=== PATIENT | female | born 1990 | race Caucasian/White ===

== ENCOUNTER 2021-03-27 15:51 | Inpatient (IN) ==
[2021-03-27] MEDS ORDERED: Buffered Lidocaine 1% SYRIN 1 ml INTRADERM ONE (16:50)
[2021-03-27] MEDS ORDERED: Lactated Ringers 1000 ml BAG 1,000 ML IV ONE (16:50)
[2021-03-27] MEDS ORDERED: Lactated Ringers 1000 ml BAG 1,000 ML IV SCH (17:00)
[2021-03-27 18:03] LABS: Urine Benzodiazepine Screen None Detected (None Detect); Urine Cannabinoids Screen None Detected (None Detect); Urine Opiates Screen None Detected (None Detect)
[2021-03-27 18:12] LABS: Rapid COVID-19 Molecular Undetected (Undetected)
[2021-03-27] MEDS: Bacitracin OINTMENT TUBE TOPICAL SCH (20:21)
[2021-03-27 21:07] LABS: ABS Eosinophils 0.1 10^3/ul (0-0.6); ABS Lymphocytes 1.7 10^3/ul (1.0-4.8); ABS Monocytes 1.3 10^3/ul (0-0.8); ABS Neutrophils 9.5 10^3/ul (1.5-7.7); Eosinophil % 0.4 %; Hematocrit 31 % (35-47); Hemoglobin 10.4 g/dL (12.0-16.0); Lymphocyte % 13.4 %; Mean Corpuscular HGB Conc 33 g/dL (31-36); Mean Corpuscular Hemoglobin 28 pg (27-31); Mean Corpuscular Volume 84 fL (80-97); Mean Platelet Volume 7.4 fL (7.4-10.4); Platelet Count 397 10^3/uL (150-450); Red Blood Count 3.74 10^6 /uL (3.70-4.87); Red Cell Distribution Width 14 % (10-15); White Blood Count 12.5 10^3/uL (3.5-10.8)
[2021-03-27] MEDS ORDERED: Nalbuphine 10 MG/ML 1 ML VIAL IV PRN (21:20)
[2021-03-27] MEDS ORDERED: Promethazine INJ(RESTRICTED) 25 MG/ML 1 ml VIAL IV ONE (21:21)
[2021-03-27] MEDS ORDERED: Oxytocin in LR 20 UNITS/1,000 ML BAG IVPB SCH (22:00)
[2021-03-27] MEDS ORDERED: OBEPIDURAL 250 ML EPIDURAL ONE (23:15)
[2021-03-27] MEDS ORDERED: Bupivacaine 0.25% SDV PF 10 ML VIAL INJ ONE (23:36)
[2021-03-28] MEDS ORDERED: EPHEDrine (Pressors) 50 MG/ML VIAL IV PUSH PRN ×2 (00:06)
[2021-03-28] MEDS ORDERED: Phenylephrine 40 mcg/mL 10mL (400mcg) SYRINGE IV PUSH PRN ×2 (00:06)
[2021-03-28] MEDS ORDERED: Lactated Ringers 1000 ml BAG 1,000 ML IV ONE (00:06)
[2021-03-28] MEDS ORDERED: Sodium Citrate/Citric Acid LIQ 15 ML UDC PO PRN (00:06)
[2021-03-28 00:37] LABS: Urine Appearance Cloudy; Urine Bilirubin Negative (Negative); Urine Blood Negative (Negative); Urine Color Yellow; Urine Glucose Negative (Negative); Urine Ketones Negative (Negative); Urine Nitrite Negative (Negative); Urine Protein Negative (Negative); Urine Specific Gravity 1.013 (1.002-1.030); Urine Urobilinogen Negative (Negative)
[2021-03-28] MEDS ORDERED: Lactated Ringers 1000 ml BAG 1,000 ML IV SCH ×2 (01:00→05:00)
[2021-03-28] MEDS ORDERED: OBEPIDURAL 250 ML EPIDURAL SCH (01:00)
[2021-03-28] MEDS ORDERED: Bupivacaine 0.25% SDV PF 10 ML VIAL INJ ONE ×2 (01:45→02:15)
[2021-03-28] MEDS ORDERED: RHO D Immune Globulin (HUMAN) 300 MCG = 1,500 I.U. INJ IM PRN (04:39)
[2021-03-28] MEDS ORDERED: Oxytocin in LR 20 UNITS/1,000 ML BAG IVPB SCH (05:00)
[2021-03-28] MEDS ORDERED: Measles, Mumps,Rubella VACC 0.5 ML/VIAL SUBCUT ONE (09:00)
[2021-03-28] MEDS: Bacitracin OINTMENT TUBE TOPICAL SCH ×4 (11:16→21:35)
[2021-03-28] MEDS: Dibucaine 1% OINT 28.35 GM TUBE PR PRN (13:37)
[2021-03-28] MEDS: Witch Hazel PAD JAR TOPICAL PRN (15:28)
[2021-03-28] MEDS ORDERED: Lidocaine 1% VIAL 10 MG/ML VIAL ONE (19:10)
[2021-03-29 06:54] LABS: ABS Eosinophils 0.1 10^3/ul (0-0.6); ABS Lymphocytes 2.4 10^3/ul (1.0-4.8); ABS Monocytes 1.2 10^3/ul (0-0.8); ABS Neutrophils 10.4 10^3/ul (1.5-7.7); Eosinophil % 0.4 %; Hematocrit 27 % (35-47); Hemoglobin 8.8 g/dL (12.0-16.0); Lymphocyte % 16.9 %; Mean Corpuscular HGB Conc 33 g/dL (31-36); Mean Corpuscular Hemoglobin 28 pg (27-31); Mean Corpuscular Volume 86 fL (80-97); Platelet Count 311 10^3/uL (150-450); Red Blood Count 3.12 10^6 /uL (3.70-4.87); Red Cell Distribution Width 14 % (10-15); White Blood Count 14.1 10^3/uL (3.5-10.8)
[2021-03-29] MEDS: Dibucaine 1% OINT 28.35 GM TUBE PR PRN (09:26)
[2021-03-29] MEDS: Witch Hazel PAD JAR TOPICAL PRN (09:26)
[2021-03-29] MEDS: Bacitracin OINTMENT TUBE TOPICAL SCH ×3 (11:15→23:35)
[2021-03-29] MEDS ORDERED: RHO D Immune Globulin (HUMAN) 300 MCG = 1,500 I.U. INJ IM ONE (13:48)
[2021-03-29] MEDS ORDERED: Measles, Mumps,Rubella VACC 0.5 ML/VIAL ONE (13:50)
[2021-03-30 07:00] LABS: ABS Eosinophils 0.2 10^3/ul (0-0.6); ABS Lymphocytes 1.9 10^3/ul (1.0-4.8); ABS Monocytes 0.9 10^3/ul (0-0.8); ABS Neutrophils 7.7 10^3/ul (1.5-7.7); Eosinophil % 1.7 %; Hematocrit 28 % (35-47); Hemoglobin 9.2 g/dL (12.0-16.0); Lymphocyte % 17.8 %; Mean Corpuscular HGB Conc 33 g/dL (31-36); Mean Corpuscular Hemoglobin 28 pg (27-31); Mean Corpuscular Volume 85 fL (80-97); Mean Platelet Volume 7.1 fL (7.4-10.4); Platelet Count 305 10^3/uL (150-450); Red Blood Count 3.23 10^6 /uL (3.70-4.87); Red Cell Distribution Width 14 % (10-15); White Blood Count 10.6 10^3/uL (3.5-10.8)
[2021-03-30 08:08] VITALS: BP 109/57
[2021-03-30] MEDS: Bacitracin OINTMENT TUBE TOPICAL SCH ×2 (09:00→13:29)
== END 2021-03-30 15:04 | disposition home or self-care (01) | DRG 560 ==
LOC: MCHOBOUT 15:51 → MCHOB 16:48
PROVIDERS: ADMIT Midwife; ATTEND Advanced Practice Midwife